=== PATIENT | female | born 1950 | race Caucasian/White ===

== ENCOUNTER 2024-08-21 08:46 | Emergency (ER) | payer BC, OTHER ==
[~2024-08-21] VITALS: Ht 165.1 cm; Wt 81.0 kg
[2024-08-21 08:49] VITALS: O2SAT 95
[2024-08-21 10:05] LABS: HEMOGLOBIN 14.6 g/dL (12.0-16.0); MEAN CORPUSCULAR HEMOGLOBIN 29.5 pg (28.0-32.0); MEAN CORPUSCULAR HGB CONC 32.5 g/dL (31.0-37.0); MEAN CORPUSCULAR VOLUME 90.6 fL (81.0-99.0); PLATELET 162 x1000/uL (130-400); RED BLOOD CELL COUNT 4.97 mill/uL (4.2-5.4); RED CELL DISTRIBUTION WIDTH 14.2 % (11.6-14.6); WHITE BLOOD COUNT 5.4 x1000/uL (4.5-11.0)
[2024-08-21 10:18] LABS: CHLORIDE 108 mEq/L (98-107); POTASSIUM 4.2 mEq/L (3.5-5.1); SODIUM 143 mEq/L (136-145)
[2024-08-21 10:19] LABS: CALCIUM 9.3 mg/dL (8.7-10.4); CARBON DIOXIDE 26 mEq/L (21-32)
[2024-08-21 10:24] LABS: CREATININE 0.9 mg/dL (0.6-1.0); GLUCOSE 131 mg/dL (70-105); UREA NITROGEN BLOOD 18 mg/dL (9-23)
[2024-08-21 10:26] LABS: ALANINE AMINOTRANSFERASE 9 IU/L (10-49); ASPARTATE AMINOTRANSFERASE 14 IU/L (<34); BILIRUBIN DIRECT 0.2 mg/dL (<=3.0); BILIRUBIN TOTAL 0.8 mg/dL (0.1-1.0); PROTEIN TOTAL 6.7 g/dL (6.0-8.3)
[2024-08-21] MEDS: METOCLOPRAMIDE HCL 10MG/2ML VIAL IV ONE (10:32)
[2024-08-21 10:37] LABS: TROPONIN I HIGH SENSITIVITY < 4 ng/L (3.0-34)
[2024-08-21] MEDS: MECLIZINE 25MG TABLET PO ONE (11:44)
[2024-08-21] MEDS ORDERED: ACETAMINOPHEN 325MG TABLET PO PRN ×2 (12:15)
[2024-08-21] MEDS ORDERED: NITROGLYCERIN 0.4MG TABLET SL SL PRN (12:15)
[2024-08-21] MEDS ORDERED: ONDANSETRON HCL 4MG/2ML INJ IV PRN (12:15)
[2024-08-21] MEDS ORDERED: MAGNESIUM/ALUMINUM HYDROXIDE/SIMETHICONE 30ML UDC PO PRN (12:15)
[2024-08-21] MEDS ORDERED: IPRATROPIUM/ALBUTEROL 0.5-3(2.5)MG/3ML NEB NEB PRN (12:15)
[2024-08-21] MEDS ORDERED: GUAIFENESIN 200MG/10ML SUGAR FREE UDC PO PRN (12:15)
[2024-08-21] MEDS ORDERED: DOCUSATE SODIUM 100MG CAPSULE PO PRN (12:15)
[2024-08-21] MEDS ORDERED: BUTALBITAL/ACETAMINOPHEN/CAFFEINE 50/325/40MG TABLET PO PRN (12:15)
[2024-08-21] MEDS ORDERED: KETOROLAC 15MG/ML VIAL IV PRN (12:15)
[2024-08-21] MEDS ORDERED: CLONIDINE 0.1MG TABLET PO PRN (12:15)
[2024-08-21] MEDS ORDERED: ENOXAPARIN 40MG/0.4ML SYR SUBCUT SCH (14:00)
[2024-08-21 14:12] LABS: GLUCOSE URINE NEGATIVE (NEGATIVE); KETONES URINE NEGATIVE (NEGATIVE)
[2024-08-21 14:16] LABS: IRON 62 ug/dL (50-170)
[2024-08-21 14:17] LABS: LDL CHOLESTEROL 124 mg/dL (5-100); TRIGLYCERIDE 117 mg/dL (0-150)
[2024-08-21 14:19] LABS: CHOLESTEROL 174 mg/dL (<200); HDL CHOLESTEROL 36 mg/dL (>65); TOTAL IRON BINDING CAPACITY 297 ug/dl (250-425)
[2024-08-21 14:24] LABS: T4 FREE 1.34 ng/dL (0.89-1.76); THYROID STIMULATING HORMONE 2.58 uIU/mL (0.55-4.78)
[2024-08-21 14:25] LABS: VITAMIN B12 SERUM 898 pg/mL (211-911)
[2024-08-21 14:41] LABS: CLARITY URINE CLEAR (CLEAR); COLOR URINE YELLOW (YELLOW)
[2024-08-21 14:42] LABS: PH URINE 7.5 (4.5-8.0); PROTEIN URINE NEGATIVE (NEGATIVE); SPECIFIC GRAVITY URINE 1.017 (1.005-1.030)
[2024-08-21 14:43] LABS: LEUKOCYTE ESTERASE URINE TRACE (NEGATIVE); NITRITE URINE NEGATIVE (NEGATIVE); OCCULT BLOOD URINE NEGATIVE (NEGATIVE)
[2024-08-21 14:45] LABS: BACTERIA URINE NONE SEEN; RBC URINE 0-2 /hpf (0-2); SQUAMOUS EPITHELIAL CELL URINE 2+ /lpf (RARE/1+)
[2024-08-21 15:00] VITALS: BP 167/83; PULSE 72; RESP 16; TEMP 36.66960; O2SAT 98
[2024-08-21 15:27] LABS: *AMPHETAMINES SCREEN URINE NEGATIVE (NEGATIVE)
[2024-08-21 15:28] LABS: *BARBITURATES SCREEN URINE NEGATIVE (NEGATIVE); *BENZODIAZEPINES SCREEN URINE NEGATIVE (NEGATIVE); *COCAINE SCREEN URINE NEGATIVE (NEGATIVE); CANNABINOID URINE SCREEN NEGATIVE (NEGATIVE); ECSTASY MDMA SCREEN URINE NEGATIVE (NEGATIVE); METHADONE URINE SCREEN NEGATIVE (NEGATIVE); OPIATES URINE SCREEN NEGATIVE (NEGATIVE); PHENCYCLIDINE URINE SCREEN NEGATIVE (NEGATIVE)
[2024-08-21] MEDS ORDERED: ZOLPIDEM TARTRATE 5MG TABLET PO PRN (21:00)
[2024-08-22] MEDS ORDERED: ASPIRIN 81MG EC TABLET PO SCH (09:00)
[2024-08-22] MEDS ORDERED: FAMOTIDINE 20MG TABLET PO SCH (12:54)
== END 2024-08-21 15:36 | disposition left against medical advice (07) ==
LOC: ER 09:53 → CANBEDREQ 14:58 → ER 15:36
DX: R42 Dizziness and giddiness (principal); R11.2 Nausea with vomiting, unspecified; R10.2 Pelvic and perineal pain
CPT/HCPCS: 99285; 93970; 96374; 70450; 80061; 80076; 80305; 80048; 82607; 82746; 83036; 84439; 83540; 83550; 84443; 85027; 84484; 36415; 93005; 81003; J8597; J2765; 82550; 82553